=== PATIENT | female | born 1995 | race African-American/Black ===

== ENCOUNTER 2016-07-26 16:13 | Emergency (ER) | payer OTHER, SELFPAY ==
[2016-07-26] MEDS ORDERED: Dexamethasone 4 mg/ml Vial ONE (16:30)
[2016-07-26] MEDS ORDERED: AMOXicillin 250 MG CAP ONE (16:37)
== END 2016-07-26 16:43 | disposition home or self-care (01) ==
LOC: BURERS 16:13
DX: J20.9 Acute bronchitis, unspecified (principal); M70.61 Trochanteric bursitis, right hip; F90.9 Attention-deficit hyperactivity disorder, unspecified type
CPT/HCPCS: 99283; J1100

== ENCOUNTER 2017-08-18 20:36 | Emergency (ER) | payer SELFPAY ==
[2017-08-18] MEDS ORDERED: Water For Injection,Sterile 20 ML ONE (20:54)
[2017-08-18] MEDS ORDERED: cefTRIAXone\\ROCEPHIN 1 GM VIAL ONE (20:54)
== END 2017-08-18 21:10 | disposition home or self-care (01) ==
LOC: BURERS 20:36
DX: J02.0 Streptococcal pharyngitis (principal)
CPT/HCPCS: 96372; J0696